=== PATIENT | male | born 1990 | race Caucasian/White ===

== ENCOUNTER 2021-10-29 06:42 | Day surgery (SDC) | payer BC ==
[~2021-10-29] VITALS: Ht 182.9 cm; Wt 99.3 kg
[~2021-10-29 06:42] MED LIST: Amlodipine Bes2.5 MG PO; HYDCHL25 PO
--- NOTE | 2021-10-29 07:38 | NUR ---
History, Chart, Medications and Allergies reviewed before start of procedure. Patient States Post-Procedure ride home has been arranged.
--- NOTE | 2021-10-29 10:57 | NUR ---
Patient up to Ambulate independently. Gait steady. Dressing to procedure site clean, dry, intact with no visible drainage, swelling, erythema or bruising noted. Discharged via wheelchair to private car for ride home W/ Discharge instructions reviewed with patient. Patient verbalizes understanding. Copy given to patient to take home.
== END 2021-10-29 23:59 | disposition home or self-care (01) ==
LOC: ORSCMMR 06:42 → ORD 08:15 → ORSCMMR 23:59
PROVIDERS: Surgery
PROC: 0JB70ZZ Excision of Back Subcutaneous Tissue and Fascia, Open Approach (ICD-10-PCS; principal; 2021-10-29 08:15)
DX: D17.1 Benign lipomatous neoplasm of skin and subcutaneous tissue of trunk (principal); I10 Essential (primary) hypertension; Z79.899 Other long term (current) drug therapy
CPT/HCPCS: 88304; A9270; J0690; J1100; J2001; J2250; J2370; J2405; J2704; J2795; J3010; J7120

== ENCOUNTER → 2022-05-20 | Outpatient (CLI) | payer BC ==
[2022-05-20 12:00] LABS: BASOPHILS ABSOLUTE AUTO 0.05 K/mm3 (0.00-0.23); BASOPHILS PERCENT AUTO 0 % (0-2); EOSINOPHILS ABSOLUTE AUTO 0.14 K/mm3 (0.00-0.68); EOSINOPHILS PERCENT AUTO 1 % (0-6); Hematocrit 40.6 % (37.0-53.0); Hemoglobin 14.9 g/dL (13.5-17.5); IMMATURE GRAN ABSOLUTE AUTO 0.21 K/mm3 (0.00-0.10); IMMATURE GRAN PERCENT AUTO 1 % (0-1); LYMPHOCYTES ABSOLUTE AUTO 0.93 K/mm3 (0.84-5.20); LYMPHOCYTES PERCENT AUTO 4 % (21-46); MONOCYTES ABSOLUTE AUTO 1.67 K/mm3 (0.16-1.47); MONOCYTES PERCENT AUTO 7 % (4-13); Mean Corpuscular HGB 31.3 pg (26.0-34.0); Mean Corpuscular HGB Conc 36.7 g/dL (31.5-36.5); Mean Corpuscular Volume 85 fL (80-100); Mean Platelet Volume 9.4 fL (9.1-12.4); NEUTROPHILS ABSOLUTE AUTO 21.21 K/mm3 (1.96-9.15); NEUTROPHILS PERCENT AUTO 88 % (41-73); Platelet Count 209 K/mm3 (150-400); Red Blood Cell Count 4.76 M/mm3 (4.30-5.90); White Blood Cell Count 24.21 K/mm3 (4.00-11.30)
[2022-05-20 12:10] LABS: Albumin, Blood 3.8 g/dL (3.4-5.0); Albumin/Globulin Ratio 0.8 (0.8-1.8); Bilirubin, Total 1.1 mg/dL (0.1-1.0); Bun/Creatinine Ratio 11.1 (12.0-20.0); Calcium, Blood 9.4 mg/dL (8.5-10.1); Creatinine, Blood 1.17 mg/dL (0.60-1.20); Globulin, Blood 4.6 g/dL (2.2-4.0); Potassium, Blood 3.7 mmol/L (3.5-5.5); Total Protein, Blood 8.4 g/dL (6.4-8.2)
== END | disposition home or self-care (01) ==
LOC: LAB SHORT 11:55
PROVIDERS: Chiropractor
DX: R05.9 Cough, unspecified (principal); R50.9 Fever, unspecified; R80.9 Proteinuria, unspecified
CPT/HCPCS: 80053; 82550; 85025

== ENCOUNTER → 2022-05-21 | Outpatient (CLI) | payer BC ==
[2022-05-21 12:12] LABS: Source, Urine Clean Catch
[2022-05-21 12:35] LABS: Red Blood Cells, Urine TNTC /hpf (0-2); Squamous Epithelial Cells Few /hpf (Few)
[2022-05-21 12:36] LABS: Bacteria Many /hpf; Granular Casts 0-2 /lpf (0)
== END | disposition home or self-care (01) ==
LOC: LAB 12:09 → LAB SHORT 12:09
PROVIDERS: Chiropractor
DX: E86.0 Dehydration (principal)
CPT/HCPCS: 81015

== ENCOUNTER → 2022-05-22 | Outpatient (CLI) | payer BC ==
[2022-05-22 12:29] LABS: BASOPHILS ABSOLUTE AUTO 0.06 K/mm3 (0.00-0.23); BASOPHILS PERCENT AUTO 1 % (0-2); EOSINOPHILS ABSOLUTE AUTO 0.35 K/mm3 (0.00-0.68); EOSINOPHILS PERCENT AUTO 3 % (0-6); Hemoglobin 13.9 g/dL (13.5-17.5); IMMATURE GRAN ABSOLUTE AUTO 0.06 K/mm3 (0.00-0.10); IMMATURE GRAN PERCENT AUTO 1 % (0-1); LYMPHOCYTES ABSOLUTE AUTO 1.85 K/mm3 (0.84-5.20); LYMPHOCYTES PERCENT AUTO 17 % (21-46); MONOCYTES ABSOLUTE AUTO 0.83 K/mm3 (0.16-1.47); MONOCYTES PERCENT AUTO 8 % (4-13); Mean Corpuscular HGB 31.4 pg (26.0-34.0); Mean Corpuscular HGB Conc 36.6 g/dL (31.5-36.5); Mean Corpuscular Volume 86 fL (80-100); NEUTROPHILS PERCENT AUTO 71 % (41-73); Platelet Count 198 K/mm3 (150-400); RDW Coefficient Variation 12.1 % (11.7-14.2); RDW Standard Deviation 37.7 fL (35.1-46.3); Red Blood Cell Count 4.42 M/mm3 (4.30-5.90); White Blood Cell Count 10.95 K/mm3 (4.00-11.30)
[2022-05-22 13:00] LABS: Albumin, Blood 3.2 g/dL (3.4-5.0); Albumin/Globulin Ratio 0.8 (0.8-1.8); Bilirubin, Total 0.5 mg/dL (0.1-1.0); Calcium, Blood 9.5 mg/dL (8.5-10.1); Creatinine, Blood 1.1 mg/dL (0.60-1.20); Globulin, Blood 4.2 g/dL (2.2-4.0); Potassium, Blood 3.6 mmol/L (3.5-5.5); Total Protein, Blood 7.4 g/dL (6.4-8.2)
== END | disposition home or self-care (01) ==
LOC: LAB SHORT 12:20 → LAB 12:20
PROVIDERS: Chiropractor
DX: J18.1 Lobar pneumonia, unspecified organism (principal); R07.9 Chest pain, unspecified
CPT/HCPCS: 80053; 84484; 85025; 85379

== ENCOUNTER → 2023-08-07 | Outpatient (CLI) | payer BC ==
[2023-08-07 14:53] LABS: BASOPHILS ABSOLUTE AUTO 0.06 K/mm3 (0.00-0.23); BASOPHILS PERCENT AUTO 1 % (0-2); EOSINOPHILS ABSOLUTE AUTO 0.15 K/mm3 (0.00-0.68); EOSINOPHILS PERCENT AUTO 1 % (0-6); Hematocrit 42.2 % (37.0-53.0); Hemoglobin 15.5 g/dL (13.5-17.5); IMMATURE GRAN ABSOLUTE AUTO 0.05 K/mm3 (0.00-0.10); IMMATURE GRAN PERCENT AUTO 1 % (0-1); LYMPHOCYTES ABSOLUTE AUTO 2.14 K/mm3 (0.84-5.20); LYMPHOCYTES PERCENT AUTO 21 % (21-46); MONOCYTES ABSOLUTE AUTO 0.62 K/mm3 (0.16-1.47); MONOCYTES PERCENT AUTO 6 % (4-13); Mean Corpuscular HGB 31.1 pg (26.0-34.0); Mean Corpuscular HGB Conc 36.7 g/dL (31.5-36.5); Mean Corpuscular Volume 85 fL (80-100); Mean Platelet Volume 9.3 fL (9.1-12.4); NEUTROPHILS ABSOLUTE AUTO 7.37 K/mm3 (1.96-9.15); NEUTROPHILS PERCENT AUTO 71 % (41-73); Platelet Count 212 K/mm3 (150-400); RDW Coefficient Variation 11.9 % (11.7-14.2); Red Blood Cell Count 4.99 M/mm3 (4.30-5.90); White Blood Cell Count 10.39 K/mm3 (4.00-11.30)
[2023-08-07 15:03] LABS: Albumin, Blood 4.1 g/dL (3.4-5.0); Albumin/Globulin Ratio 1.1 (0.8-1.8); Bilirubin, Total 0.6 mg/dL (0.1-1.0); Bun/Creatinine Ratio 12.8 (12.0-20.0); Calcium, Blood 8.8 mg/dL (8.5-10.1); Creatinine, Blood 1.09 mg/dL (0.60-1.20); Globulin, Blood 3.6 g/dL (2.2-4.0); Total Protein, Blood 7.7 g/dL (6.4-8.2)
[2023-08-08 22:22] LABS: COMPLEMENT COMPONENT 3 116 mg/dL (90-180); COMPLEMENT COMPONENT 4 21 mg/dL (10-40)
[2023-08-09 11:08] LABS: STREPTOLYSIN O ANTIBODY <55 IU/mL (<=330)
== END | disposition home or self-care (01) ==
LOC: LAB SHORT 14:48 → LAB 14:48
PROVIDERS: Emergency Medicine
DX: R31.9 Hematuria, unspecified (principal)
CPT/HCPCS: 80053; 85025; 86060; 86160

== ENCOUNTER → 2023-10-25 | Outpatient (CLI) | payer BC | END | disposition home or self-care (01) | LOC: LAB SHORT 12:54 → LAB 12:54 → LAB FUT 10-21 07:40 | PROVIDERS: Naturopath | DX: E78.2 Mixed hyperlipidemia (principal); E61.1 Iron deficiency; D75.0 Familial erythrocytosis; N18.9 Chronic kidney disease, unspecified | CPT/HCPCS: 81050; 82043 ==